=== PATIENT | male | born 1995 | race African-American/Black ===

== ENCOUNTER 2017-01-25 07:22 | Emergency (ER) | payer OTHER ==
[~2017-01-25] VITALS: Ht 175.3 cm; Wt 58.1 kg
[2017-01-25 07:52] VITALS: BP 133/75
== END 2017-01-25 09:09 | disposition home or self-care (01) ==
LOC: ER 07:35
DX: S46.002A Unspecified injury of muscle(s) and tendon(s) of the rotator cuff of left shoulder, initial encounter (principal); G89.29 Other chronic pain; Z91.018 Allergy to other foods; X50.0XXA Overexertion from strenuous movement or load, initial encounter; Y93.89 Activity, other specified; Y99.8 Other external cause status; Y92.89 Other specified places as the place of occurrence of the external cause
CPT/HCPCS: 73030